=== PATIENT | female | born 1990 | race Caucasian/White ===

== ENCOUNTER 2018-09-18 17:03 | Emergency (ER) | payer BC ==
[~2018-09-18] VITALS: Ht 165.1 cm; Wt 61.2 kg
[2018-09-18] MEDS: IBUPROFEN 600 MG TABLET PO ONE (17:46)
[2018-09-18] MEDS ORDERED: IBUPROFEN 600 MG TABLET ONE (17:47)
--- NOTE | 2018-09-18 17:47 | NUR ---
PT WAS EVALUATED BY DR LANDA. PT WAS D/C'd TO HOME. D/C INSTRUCTIONS GIVEN TO THE PT.
[2018-09-18 17:49] VITALS: BP 129/68
== END 2018-09-18 17:50 | disposition home or self-care (01) ==
LOC: ER 17:05
DX: G89.29 Other chronic pain (principal); M54.5 Low back pain
CPT/HCPCS: A4663